=== PATIENT | female | born 1940 | race Caucasian/White ===

== ENCOUNTER 2025-05-26 11:26 | Emergency (ER) | payer MEDICARE, MEDICAID ==
[~2025-05-26] VITALS: Ht 162.6 cm; Wt 60.0 kg
[2025-05-26] MEDS ORDERED: MORPHINE SULFATE 4 MG/ML INJ (FOR IV/IM USE) IV ONE (13:15)
[2025-05-26] MEDS: CLONIDINE 0.1MG TABLET PO ONE (13:27)
[2025-05-26] MEDS: MORPHINE SULFATE 4 MG/ML INJ (FOR IV/IM USE) IM ONE (13:28)
[2025-05-26 15:43] VITALS: O2SAT 95
[2025-05-26] MEDS: PROPOFOL 200MG/20ML VIAL IV NR (15:55)
[2025-05-26] MEDS: KETAMINE HCL 50 MG/ML 10ML IV NR (15:55)
[2025-05-26 15:57] VITALS: O2SAT 99
[2025-05-26] MEDS ORDERED: IBUP-2028 MT (17:22)
[2025-05-26] MEDS ORDERED: OMEP20TA23 MT (17:22)
[2025-05-26] MEDS: IBUPROFEN 600MG TABLET PO ONE (20:37)
[2025-05-26 20:40] VITALS: BP 174/88; PULSE 75; RESP 8; TEMP 36.5; O2SAT 98
== END 2025-05-26 20:43 | disposition home or self-care (01) ==
LOC: ER 11:26
DX: S43.014A Anterior dislocation of right humerus, initial encounter (principal); I10 Essential (primary) hypertension; Z79.899 Other long term (current) drug therapy; W19.XXXA Unspecified fall, initial encounter; Y93.89 Activity, other specified; Y92.89 Other specified places as the place of occurrence of the external cause; Y99.8 Other external cause status
CPT/HCPCS: 99285; 23650; 73502; 73030; 73060; 98960; 99152; 96372; J3490; J2704; J2270; 94070; 94664; 94760